=== PATIENT | female | born 1980 | race Caucasian/White ===

== ENCOUNTER 2018-06-17 19:59 | Emergency (ER) | payer SELFPAY ==
[~2018-06-17 19:59] MED LIST: ISOVUE-370 76%-LOCM 1 ML ONE
--- NOTE | 2018-06-17 20:50 | RAD ---
CHEST ONE VIEW: 06/17/18 HISTORY: Cough. COMPARISON: 05/02/17. FINDINGS: The cardiac silhouette is magnified and upper limits of normal in size. Pulmonary vasculature is unre markable. Mediastinum is midline. No confluent air space consolidation or evidence of pneumothorax. IMPRESSION: No active cardiopulmonary abnormalities are demonstrated. POS: [facility]
[2018-06-17 21:23] LABS: #Basophils 0.1 thou/uL (0.0-0.2); #Lymphocytes 3.5 thou/uL (1.20-3.40); #Monocytes 0.7 thou/uL (0.11-0.59); %Basophils 0.7 % (0.0-1.0); %Lymphocytes 28.5 % (21.0-51.0); %Monocytes 5.7 % (0.0-10.0); %Neutrophils 57.1 % (42.0-75.0); Hemoglobin 11.2 g/dL (12.0-16.0); Mean Corpuscular HGB CONC 33.4 g/dL (32.0-36.0); Mean Corpuscular Hemoglobin 28.3 pg (27.0-31.0); Mean Corpuscular Volume 84.8 fL (78.0-98.0); Platelet Count 431 thou/uL (130-400); RBC Distribution Width 14.2 % (11.5-14.5); Red Blood Cell (RBC) Count 3.96 mill/uL (4.20-5.40); White Blood Cell (WBC) Count 12.2 thou/uL (4.8-10.8)
[2018-06-17 21:47] LABS: CKMB 1.2 ng/mL (0-6.6); Troponin I Less than 0.010 ng/mL (< 0.028)
[2018-06-17] MEDS ORDERED: methylPREDNISolone Sod Succ/PF 125 MG/2 ML VIAL ONE (23:21)
[2018-06-18] MEDS ORDERED: Ondansetron HCl/PF 4 MG/2 ML Vial ONE (00:17)
--- NOTE | 2018-06-18 09:45 | CT ---
PRELIMINARY REPORT/[facility]/EMERGENTY AFTER-HOURS PROCEDURE CT Angiography Chest With Intravenous Contrast EXAM DATE/TIME: 06/18/2018 12:04 AM CLINICAL HISTORY: 38 years old, female; Syncope; cough for several days. states was at her desk, coughed, then next thi ng she knew she "woke up" and had lost control of her bladder. Pt states syncope was witnessed and sh e woke to her head on her desk. TECHNIQUE: Axial computed tomographic angiography images of the chest with intravenous contrast using CT angiogr aphy protocol. MIP reconstructed images were created and reviewed. COMPARISON: No relevant prior studies available. FINDINGS: Pulmonary arteries: No evidence of pulmonary embolism. Aorta: Normal caliber thoracic aorta without dissection or aneurysm. Lungs: Scattered faint patches of "ground glass" infiltrate within each lung. Pleural space: No pleural fluid collection. No pneumothorax. Heart: No pericardial effusion. Bones/joints: Unremarkable. No acute fracture. Soft tissues: Unremarkable. Lymph nodes: No pathologically enlarged lymph nodes. Gallbladder and bile ducts: Status post cholecystectomy. IMPRESSION: 1. Scattered faint patches of "ground glass" infiltrate within each lung. 2. No evidence of pulmonary embolism. 3. Normal caliber thoracic aorta without dissection or aneurysm. Thank you for allowing us to participate in the care of your patient. Dictated and Authenticated by: Sachin Lee MD 06/18/2018 12:32 AM Central Time ([place] & [place]) FINAL REPORT EMERGENT AFTER HOURS CT ANGIOGRAM THORAX WITH IV CONTRAT AND 3D RECONSTRUCTIONS: DATE: 06/18/2018. HISTORY: Cough for several days. Syncope. The patient woke up with head on desk. IMPRESSION: 1. Scattered ground-glass opacities within the lungs bilaterally which is nonspecific but could be r elated to infectious process. No consolidation or pleural fluid is seen. 2. No evidence of lymphadenopathy. 3. No CT evidence of a pulmonary embolus. 4. Post cholecystectomy changes. 5. Fatty infiltration of the liver. 6. Findings are in agreement with the preliminary report by [facility]. POS: [facility]
== END 2018-06-18 01:10 | disposition home or self-care (01) ==
LOC: ERS 19:59
DX: J20.9 Acute bronchitis, unspecified (principal); R55 Syncope and collapse; I10 Essential (primary) hypertension; F41.9 Anxiety disorder, unspecified; F32.9 Major depressive disorder, single episode, unspecified; F17.210 Nicotine dependence, cigarettes, uncomplicated; Z71.6 Tobacco abuse counseling
CPT/HCPCS: 36415; 71045; 71275; 82553; 84484; 85025; 85379; 93005; 94640; 96374; 99406; J2405; J2930; J7620

== ENCOUNTER 2019-09-06 17:50 | Emergency (ER) | payer SELFPAY ==
[2019-09-06 18:33] LABS: #Basophils 0.1 thou/uL (0.0-0.2); #Eosinphils 0.2 thou/uL (0.0-0.7); #Lymphocytes 3.4 thou/uL (1.20-3.40); #Monocytes 0.5 thou/uL (0.11-0.59); #Neutrophils 8.1 thou/uL (1.40-6.50); %Basophils 0.5 % (0.0-1.0); %Eosinophils 1.9 % (0.0-10.0); %Lymphocytes 27.5 % (21.0-51.0); %Monocytes 4.3 % (0.0-10.0); %Neutrophils 65.9 % (42.0-75.0); Hemoglobin 12.9 g/dL (12.0-16.0); Mean Corpuscular HGB CONC 34.2 g/dL (32.0-36.0); Mean Corpuscular Hemoglobin 28.7 pg (27.0-31.0); Mean Platelet Volume 7.6 fL (7.4-10.4); Platelet Count 373 thou/uL (130-400); RBC Distribution Width 14.1 % (11.5-14.5); White Blood Cell (WBC) Count 12.3 thou/uL (4.8-10.8)
[2019-09-06 18:56] LABS: ALT (SGPT) 27 U/L (8-55); AST (SGOT) 23 U/L (5-34); Albumin 4.2 g/dL (3.5-5.0); Alkaline Phosphatase 133 U/L (40-110); Anion Gap 11 mmol/L (10-20); BUN (Urea Nitrogen) Less than 4 mg/dL (7.0-18.7); Bilirubin, Total 0.3 mg/dL (0.2-1.2); Calc. Creatinine Clearance 0 mL/min (70-130); Calcium 9.5 mg/dL (7.8-10.44); Carbon Dioxide 30 mmol/L (22-29); Chloride 98 mmol/L (98-107); Estimated GFR-MDRD 86; Globulin 3.3 g/dL (2.4-3.5); Glucose 102 mg/dL (70-105); Lipase 17 U/L (8-78); Potassium 3.3 mmol/L (3.5-5.1); Protein, Total 7.5 g/dL (6.0-8.3); Sodium 136 mmol/L (136-145)
[2019-09-06 18:57] LABS: Bacteria/HPF None Seen HPF (None Seen); Bilirubin Negative (Negative); Blood, Urine Trace (Negative); Clarity Clear (Clear); Glucose, Urine (Dipstick) Normal (Negative); Leukocyte Negative Leu/uL (Negative); Nitrite Negative (Negative); Protein, Urine (Dipstick) Negative (Neg-Trace); RBC/HPF 0-3 HPF (0-3); Squamous Epithelial 0-3 HPF (0-3); Urobilinogen Normal mg/dL (Less than 2); WBC/HPF 0-3 HPF (0-3)
[2019-09-06 19:00] LABS: Pregnancy Test - Urine (BHCG) Negative (Negative); Pregu Control Background? CLEAR/WHITE (CLR/WHITE); Pregu Control Bar Appear? YES (CONTROL BAR); Specific Gravity 1.002 (1.002-1.036)
== END 2019-09-06 19:51 | disposition home or self-care (01) ==
LOC: ERS 17:50
DX: R19.7 Diarrhea, unspecified (principal); R11.2 Nausea with vomiting, unspecified; I10 Essential (primary) hypertension; F41.9 Anxiety disorder, unspecified; F32.9 Major depressive disorder, single episode, unspecified; Z87.891 Personal history of nicotine dependence
CPT/HCPCS: 36415; 80053; 81003; 81015; 81025; 83690; 85025; 99284

== ENCOUNTER 2022-05-28 01:53 | Emergency (ER) | payer SELFPAY ==
[2022-05-28] MEDS ORDERED: Dexamethasone 10 MG/ML VIAL ONE (03:11)
== END 2022-05-28 03:55 | disposition home or self-care (01) ==
LOC: ERS 01:53
DX: J20.9 Acute bronchitis, unspecified (principal); I10 Essential (primary) hypertension; F17.210 Nicotine dependence, cigarettes, uncomplicated
CPT/HCPCS: 71045; 94640; J1100; J7620

== ENCOUNTER 2022-06-11 09:56 | Emergency (ER) | payer BC | END 2022-06-11 12:22 | disposition home or self-care (01) | LOC: ERS 09:56 | DX: S63.601A Unspecified sprain of right thumb, initial encounter (principal); I10 Essential (primary) hypertension; F17.210 Nicotine dependence, cigarettes, uncomplicated; W22.8XXA Striking against or struck by other objects, initial encounter ==

== ENCOUNTER 2024-02-25 19:50 | Emergency (ER) | payer BC, SELFPAY ==
[2024-02-25 20:36] LABS: Bilirubin Negative (Negative); Blood, Urine Trace (Negative); CAUTI Indications for Culture Dysuria,urgency,freq; Clarity Turbid (Clear); Glucose, Urine (Dipstick) Normal (Negative); Ketone, Urine Negative (Negative); Leukocyte 500 Leu/uL (Negative); Nitrite Negative (Negative); Protein, Urine (Dipstick) 10 mg/dL (Neg-Trace); Specific Gravity, Urine 1.013 (1.002-1.036); Urobilinogen Normal mg/dL (Less than 2); WBC/HPF Greater than 50 HPF (0-3)
[2024-02-25 20:37] LABS: Bacteria/HPF 1+ HPF (None Seen)
[2024-02-25 20:38] LABS: Urine Culture Reflex Yes Yes
== END 2024-02-25 23:44 | disposition left against medical advice (07) ==
LOC: ERS 19:50
DX: Z53.21 Procedure and treatment not carried out due to patient leaving prior to being seen by health care provider (principal)
CPT/HCPCS: 81001; 87077; 87086

== ENCOUNTER 2024-03-08 14:24 | Emergency (ER) | payer SELFPAY ==
[2024-03-08 15:33] LABS: Bacteria/HPF 2+ HPF (None Seen); Bilirubin Negative (Negative); Blood, Urine Trace (Negative); CAUTI Indications for Culture Pelvic or flank pain; Clarity Turbid (Clear); Glucose, Urine (Dipstick) Normal (Negative); Ketone, Urine Negative (Negative); Leukocyte 500 Leu/uL (Negative); Nitrite Negative (Negative); Protein, Urine (Dipstick) 20 mg/dL (Neg-Trace); RBC/HPF 21-50 HPF (0-3); Specific Gravity, Urine 1.011 (1.002-1.036); Urobilinogen Normal mg/dL (Less than 2); WBC/HPF Greater than 50 HPF (0-3); pH, Urine 6.5 (5.0-9.0)
[2024-03-08 15:36] LABS: Urine Culture Reflex Yes Yes
[2024-03-09 13:13] LABS: Chlamydia by PCR, Vaginal Swab Not Detected (NotDetected); GC by PCR, Vaginal Swab Not Detected (NotDetected); Tric.vaginalis PCR,Vaginal Sw DETECTED (NotDetected)
== END 2024-03-08 18:25 | disposition home or self-care (01) ==
LOC: ERS 14:24
DX: N30.00 Acute cystitis without hematuria (principal)
CPT/HCPCS: 81001; 87077; 87086; 87480; 87491; 87510; 87591; 87660; 87661; 99283